=== PATIENT | female | born 1955 | race Caucasian/White ===

== ENCOUNTER 2017-11-18 11:17 | Emergency (ER) | payer OTHER ==
[~2017-11-18] VITALS: Ht 165.1 cm; Wt 143.8 kg
[2017-11-18] MEDS ORDERED: ZYRTEC10 MG PO (12:17)
[2017-11-18] MEDS ORDERED: TESSALON PERLE100 M1 PO (12:17)
[2017-11-18] MEDS ORDERED: FLONASE ALLERG9.9 ML NAS (12:17)
== END 2017-11-18 12:17 | disposition home or self-care (01) ==
LOC: ED 11:17
DX: B34.9 Viral infection, unspecified (principal); E11.9 Type 2 diabetes mellitus without complications

== ENCOUNTER 2020-03-07 18:12 | Inpatient (IN) | payer MEDICARE, OTHER ==
[~2020-03-07] VITALS: Ht 165.1 cm; Wt 134.0 kg
[~2020-03-07 18:12] MED LIST: FLONASE ALLERG9.9 ML NAS; TESSALON PERLE100 M1 PO; ZYRTEC10 MG PO
[2020-03-07 18:15] VITALS: BP 112/71
[2020-03-07 18:58] LABS: ACT PARTIAL THROMBO TIME 25.1 SECONDS (20.0-32.1)
[2020-03-07 19:00] LABS: ALBUMIN 2.9 gm/dl (3.1-4.5); ALKALINE PHOSPHATASE 86 U/L (45-117); BUN 34 mg/dl (7-24); CHLORIDE 111 mmol/L (98-107); CREATININE 2.07 mg/dL (0.55-1.02); LIPASE 294 U/L (73-393); POTASSIUM 5.4 mmol/L (3.5-5.1); SGOT/AST 27 IU/L (3-35); SGPT/ALT 33 U/L (12-78); SODIUM 137 mmol/L (136-145); TOTAL PROTEIN 7.7 gm/dL (6.4-8.2)
[2020-03-07 19:04] LABS: TROPONIN I < 0.015 ng/ml (<0.045)
[2020-03-07 19:20] LABS: BASO % 0.2 % (0.0-1.0); EOS % 0.2 % (1.0-4.0); LYMPH % 16.4 % (27.0-41.0); MEAN CORPUSCULAR HGB 28.8 pg (27.0-31.0); MEAN PLATELET VOLUME 10.4 fl (9.6-12.3); MONO # 0.4 10*3/uL (0.1-1.0); MONO % 3.5 % (3.0-9.0); NEUT # 9.8 10*3/uL (2.3-7.9); NEUT % 79.1 % (47.0-73.0); PLATELET COUNT AUTOMATED 285 10*3/uL (130-400); RED BLOOD COUNT 4.41 10*6/uL (4.10-5.10); RED CELL DISTRI WIDTH 14.1 % (0-14.5); WHITE BLOOD COUNT 12.4 10*3/uL (4.8-10.8)
[2020-03-07 19:53] VITALS: BP 112/67
[2020-03-07 21:44] VITALS: BP 129/54
[2020-03-07 23:00] VITALS: BP 134/68
[2020-03-07 23:28] LABS: ARTERIAL BLOOD GAS PH 7.288 (7.35-7.45)
[2020-03-07 23:40] VITALS: BP 113/64
[2020-03-08] VITALS (7 sets, daily range): BP systolic 110–136; BP diastolic 42–64
[2020-03-08] MEDS ORDERED: ZENPEP DR 40,01 EAC1 PO (01:58)
[2020-03-08] MEDS ORDERED: PROAIR HFA8.5 GM INH (02:00)
[2020-03-08] MEDS ORDERED: PROMETH-CODEIN 65 ML PO (02:00)
[2020-03-08] MEDS ORDERED: ACARBOSE50 MG PO (02:02)
[2020-03-08] MEDS ORDERED: NORVASC5 MG PO (02:02)
[2020-03-08] MEDS ORDERED: LOSARTAN POTAS100 M1 PO (02:03)
[2020-03-08] MEDS ORDERED: SIMVASTATIN10 MG PO (02:03)
[2020-03-08] MEDS ORDERED: PAROXETINE HCL10 MG PO (02:04)
[2020-03-08] MEDS ORDERED: PROTONIX20 MG PO (02:04)
[2020-03-08] MEDS ORDERED: ASPIRIN ADULT L81 M1 PO (02:05)
[2020-03-08] MEDS ORDERED: LEVOTHYROXINE100 MC1 PO (02:06)
[2020-03-08] MEDS ORDERED: DULCOLAX5 M1 PO (02:06)
[2020-03-08] MEDS ORDERED: GLIMEPIRIDE4 M1 PO (02:07)
[2020-03-08] MEDS ORDERED: METOPROLOL SUCC50 M1 PO (02:07)
[2020-03-08] MEDS ORDERED: NEXIUM20 M1 PO (02:08)
[2020-03-08] MEDS ORDERED: MIRALAX119 GM PO (02:09)
[2020-03-08] MEDS ORDERED: CALCIUM500 M1 PO (02:10)
[2020-03-08] MEDS ORDERED: MULTIVITAMINS1 EAC5 PO (02:10)
[2020-03-08] MEDS ORDERED: VITAMIN D310 MC3 PO (02:11)
[2020-03-08] MEDS ORDERED: LEVEMIR FL100 UNIT/1 SQ (02:14)
[2020-03-08] MEDS ORDERED: HUMALOG100 UNIT/1 SQ ×2 (02:16→02:17)
[2020-03-08 04:18] LABS: ALBUMIN 2.8 gm/dl (3.1-4.5); CREATININE 2.54 mg/dL (0.55-1.02); TOTAL PROTEIN 7.4 gm/dL (6.4-8.2)
[2020-03-08 04:31] LABS: POTASSIUM 6.4 mmol/L (3.5-5.1)
[2020-03-08 05:55] LABS: HEMATOCRIT 37.4 % (37.0-47.0); MEAN CELL VOLUME 94.2 fl (81.0-99.0); MEAN CORPUSCULAR HGB 28.7 pg (27.0-31.0); MEAN CORPUSCULAR HGB CONC 30.5 g/dl (33.0-37.0); MEAN PLATELET VOLUME 11.1 fl (9.6-12.3); PLATELET COUNT AUTOMATED 218 10*3/uL (130-400); RED BLOOD COUNT 3.97 10*6/uL (4.10-5.10); RED CELL DISTRI WIDTH 13.9 % (0-14.5); WHITE BLOOD COUNT 20.4 10*3/uL (4.8-10.8)
[2020-03-08 06:52] LABS: CREATININE 2.55 mg/dL (0.55-1.02)
[2020-03-08 06:59] LABS: POTASSIUM 6.5 mmol/L (3.5-5.1)
[2020-03-08 07:16] LABS: PLATELET SUFFICIENCY NORMAL (NORMAL); TOTAL CELLS COUNTED 100 #CELLS; TOXIC GRANULATION SLIGHT
[2020-03-08] MEDS ORDERED: TRAZODONE50 MG PO (07:21)
[2020-03-08 08:40] LABS: CREATININE 2.26 mg/dL (0.55-1.02)
[2020-03-08 08:42] LABS: INTERNATIONAL NORM RATIO 1.1 (2.0-3.5)
[2020-03-08 08:45] LABS: POTASSIUM 6.3 mmol/L (3.5-5.1)
[2020-03-08 17:07] LABS: CREATININE 2.27 mg/dL (0.55-1.02); POTASSIUM 5.9 mmol/L (3.5-5.1)
[2020-03-09 05:51] LABS: ALBUMIN 2.8 gm/dl (3.1-4.5); TOTAL PROTEIN 6.8 gm/dL (6.4-8.2)
[2020-03-09 05:52] LABS: POTASSIUM 4.9 mmol/L (3.5-5.1)
[2020-03-09 06:09] LABS: BASO % 0.4 % (0.0-1.0); EOS % 0.3 % (1.0-4.0); HEMATOCRIT 31.7 % (37.0-47.0); LYMPH # 2.1 10*3/uL (1.3-4.4); LYMPH % 20.6 % (27.0-41.0); MEAN CELL VOLUME 95.8 fl (81.0-99.0); MEAN CORPUSCULAR HGB CONC 30.3 g/dl (33.0-37.0); MEAN PLATELET VOLUME 11.1 fl (9.6-12.3); MONO # 0.5 10*3/uL (0.1-1.0); NEUT # 7.5 10*3/uL (2.3-7.9); PLATELET COUNT AUTOMATED 191 10*3/uL (130-400); RED BLOOD COUNT 3.31 10*6/uL (4.10-5.10); RED CELL DISTRI WIDTH 14.2 % (0-14.5); WHITE BLOOD COUNT 10.3 10*3/uL (4.8-10.8)
[2020-03-09 08:00] VITALS: BP 128/50
[2020-03-09 10:25] LABS: ACT PARTIAL THROMBO TIME 67.8 SECONDS (20.0-32.1)
[2020-03-09 12:00] VITALS: BP 116/41
[2020-03-09 16:00] VITALS: BP 103/40
[2020-03-09 20:00] VITALS: BP 114/43; BP 130/90
[2020-03-10] VITALS: BP 133/55
[2020-03-10 04:00] VITALS: BP 127/50
[2020-03-10 06:16] LABS: BASO % 0.7 % (0.0-1.0); EOS # 0.2 10*3/uL (0.0-0.4); EOS % 3.6 % (1.0-4.0); HEMATOCRIT 33.3 % (37.0-47.0); LYMPH # 1.9 10*3/uL (1.3-4.4); MEAN CELL VOLUME 94.9 fl (81.0-99.0); MEAN CORPUSCULAR HGB 29.1 pg (27.0-31.0); MEAN CORPUSCULAR HGB CONC 30.6 g/dl (33.0-37.0); MEAN PLATELET VOLUME 11.2 fl (9.6-12.3); MONO # 0.4 10*3/uL (0.1-1.0); NEUT # 3.2 10*3/uL (2.3-7.9); NEUT % 54.8 % (47.0-73.0); PLATELET COUNT AUTOMATED 178 10*3/uL (130-400); RED BLOOD COUNT 3.51 10*6/uL (4.10-5.10); RED CELL DISTRI WIDTH 14.2 % (0-14.5); WHITE BLOOD COUNT 5.9 10*3/uL (4.8-10.8)
[2020-03-10 06:49] LABS: CREATININE 1.77 mg/dL (0.55-1.02); POTASSIUM 4.9 mmol/L (3.5-5.1)
[2020-03-10 06:50] LABS: TOTAL PROTEIN 7.3 gm/dL (6.4-8.2)
[2020-03-10 08:00] VITALS: BP 128/63
[2020-03-10 12:00] VITALS: BP 134/46
[2020-03-10] MEDS ORDERED: ZITHROMAX250 MG PO (13:13)
[2020-03-10] MEDS ORDERED: OMNICEF300 MG PO (13:13)
[2020-03-15 21:06] LABS: ADENOVIRUS Negative (Negative); INFLUENZA A Negative (Negative); INFLUENZA B Negative (Negative); METAPNEUMOVIRUS Negative (Negative); PARAINFLUENZA 1 Negative (Negative); PARAINFLUENZA 2 Negative (Negative); PARAINFLUENZA 3 Negative (Negative); RHINOVIRUS Negative (Negative); RSV A Negative (Negative); RSV B Negative (Negative)
== END 2020-03-10 14:29 | disposition home or self-care (01) | DRG 871 ==
LOC: ED 18:12 → EDHOLD 21:45 → 4E 21:45
PROVIDERS: Emergency Medicine; Hospitalist; Internal Medicine; Internal Medicine Critical Care Medicine; Internal Medicine Nephrology; Student in an Organized Health Care Education/Training Program; ADMIT Internal Medicine
DX: A41.9 Sepsis, unspecified organism (principal); J18.1 Lobar pneumonia, unspecified organism; T88.6XXA Anaphylactic reaction due to adverse effect of correct drug or medicament properly administered, initial encounter; Z68.43 Body mass index [BMI] 50.0-59.9, adult; E87.4 Mixed disorder of acid-base balance; E44.0 Moderate protein-calorie malnutrition; N17.9 Acute kidney failure, unspecified; Z20.828 Contact with and (suspected) exposure to other viral communicable diseases; E87.5 Hyperkalemia; E11.22 Type 2 diabetes mellitus with diabetic chronic kidney disease; N18.3 Chronic kidney disease, stage 3 (moderate); I12.9 Hypertensive chronic kidney disease with stage 1 through stage 4 chronic kidney disease, or unspecified chronic kidney disease; E03.9 Hypothyroidism, unspecified; T36.8X5A Adverse effect of other systemic antibiotics, initial encounter; E66.01 Morbid (severe) obesity due to excess calories; E87.8 Other disorders of electrolyte and fluid balance, not elsewhere classified; E11.65 Type 2 diabetes mellitus with hyperglycemia; R79.89 Other specified abnormal findings of blood chemistry; R65.20 Severe sepsis without septic shock; E07.89 Other specified disorders of thyroid; R06.89 Other abnormalities of breathing; Z79.4 Long term (current) use of insulin; Y92.89 Other specified places as the place of occurrence of the external cause; Z90.49 Acquired absence of other specified parts of digestive tract; Z90.710 Acquired absence of both cervix and uterus; Z82.3 Family history of stroke; Z80.42 Family history of malignant neoplasm of prostate; Z88.1 Allergy status to other antibiotic agents; Z88.5 Allergy status to narcotic agent; Z79.899 Other long term (current) drug therapy; R09.1 Pleurisy; M94.0 Chondrocostal junction syndrome [Tietze]; R07.89 Other chest pain

== ENCOUNTER → 2021-12-19 | Outpatient (CLI) | payer MEDICARE, OTHER ==
[~2021-12-19] MED LIST changes: +ACARBOSE50 MG PO; +ASPIRIN ADULT L81 M1 PO; +CALCIUM500 M1 PO; +DULCOLAX5 M1 PO; +GLIMEPIRIDE4 M1 PO; +HUMALOG100 UNIT/1 SQ; +LEVEMIR FL100 UNIT/1 SQ; +LEVOTHYROXINE100 MC1 PO; +LOSARTAN POTAS100 M1 PO; +METOPROLOL SUCC50 M1 PO; +MIRALAX119 GM PO; +MULTIVITAMINS1 EAC5 PO; +NEXIUM20 M1 PO; +NORVASC5 MG PO; +OMNICEF300 MG PO; +PAROXETINE HCL10 MG PO; +PROAIR HFA8.5 GM INH; +PROMETH-CODEIN 65 ML PO; +PROTONIX20 MG PO; +SIMVASTATIN10 MG PO; +TRAZODONE50 MG PO; +VITAMIN D310 MC3 PO; +ZENPEP DR 40,01 EAC1 PO; +ZITHROMAX250 MG PO
== END | disposition home or self-care (01) ==
LOC: CARD 14:51
PROVIDERS: ATTEND Internal Medicine Cardiovascular Disease
DX: I08.8 Other rheumatic multiple valve diseases (principal); R06.00 Dyspnea, unspecified

== ENCOUNTER → 2022-08-25 | Outpatient (CLI) | payer MEDICARE, OTHER | LOC: US 15:00 | PROVIDERS: ATTEND Nurse Practitioner Family | DX: R22.42 Localized swelling, mass and lump, left lower limb (principal) ==

== ENCOUNTER → 2023-10-13 | Outpatient (CLI) | payer MEDICARE, OTHER ==
[~2023-10-13] MED LIST changes: +ALIGN4 M1 PO; +ALLOPURINOL100 MG PO; +OXYBUTYNIN10 MG PO
== END | disposition home or self-care (01) ==
LOC: CARD 03:54
PROVIDERS: ATTEND Internal Medicine Cardiovascular Disease
DX: I99.8 Other disorder of circulatory system (principal); R94.31 Abnormal electrocardiogram [ECG] [EKG]; E11.65 Type 2 diabetes mellitus with hyperglycemia; R53.81 Other malaise; R06.02 Shortness of breath

== ENCOUNTER 2025-08-03 19:56 | Inpatient (IN) | payer MEDICARE, OTHER ==
[~2025-08-03] VITALS: Ht 165.1 cm; Wt 131.8 kg
[2025-08-03] MEDS ORDERED: CREON DR 36,001 EAC1 PO (20:29)
[2025-08-03] MEDS ORDERED: Rocaltrol0.25 MCG PO (20:29)
[2025-08-03] MEDS ORDERED: LORADAMED10 MG PO (20:30)
[2025-08-03] MEDS ORDERED: LEVOTHYROXINE100 MC2 PO (20:30)
[2025-08-03] MEDS ORDERED: COZAAR50 M1 PO (20:31)
[2025-08-03] MEDS ORDERED: LUBIPROSTONE8 MCG PO (20:31)
[2025-08-03] MEDS ORDERED: OMEPRAZOLE40 MG PO (20:33)
[2025-08-03] MEDS ORDERED: NOVOLOG MI100 UNIT/1 SQ (20:33)
[2025-08-03] MEDS ORDERED: PAROXETINE HCL30 MG PO (20:34)
[2025-08-03] MEDS ORDERED: ONDANSETRON HYDR4 MG PO (20:34)
[2025-08-03] MEDS ORDERED: SIMVASTATIN10 MG PO (20:35)
[2025-08-03] MEDS ORDERED: TRESIBA FL100 UNIT/1 SQ (20:36)
[2025-08-03] MEDS ORDERED: ASPIRIN CHEWABL81 MG PO (20:36)
[2025-08-03] MEDS ORDERED: MIRALAX17 GM PO (20:37)
[2025-08-03 20:49] VITALS: BP 143/47
[2025-08-03 21:14] LABS: BASO # 0.0 10*3/uL (0.0-0.1); BASO % 0.5 % (0.0-1.0); EOS # 0.2 10*3/uL (0.0-0.4); EOS % 3.6 % (1.0-4.0); MEAN CELL VOLUME 96.6 fl (81.0-99.0); MEAN CORPUSCULAR HGB 29.7 pg (27.0-31.0); MEAN PLATELET VOLUME 11.4 fl (9.6-12.3); MONO # 0.5 10*3/uL (0.1-1.0); MONO % 8.6 % (3.0-9.0); NEUT # 3.4 10*3/uL (2.3-7.9); NEUT % 54.7 % (47.0-73.0); NUCLEATED RED BLOOD CELL 0.0 % (0.0-0.0); NUCLEATED RED BLOOD CELL 0.0 10*3/uL (0.0-0.0); PLATELET COUNT AUTOMATED 165 10*3/uL (130-400); RED CELL DISTRI WIDTH 13.8 % (0-14.5)
[2025-08-03 21:38] LABS: ACT PARTIAL THROMBO TIME 28.6 SECONDS (20.0-32.1)
[2025-08-03 21:39] LABS: BUN 35.0 mg/dl (9-23); SGPT/ALT 24.0 U/L (5-49)
[2025-08-04 00:25] VITALS: BP 141/84
[2025-08-04] MEDS ORDERED: BISACODYL 5 MG TAB PO PRN (00:45)
[2025-08-04] MEDS ORDERED: Ondansetron Hydrochloride 4 MG/2 ML VIAL IV PRN (00:45)
[2025-08-04] MEDS ORDERED: BISACODYL 10 MG SUPP R PRN (00:45)
[2025-08-04] MEDS ORDERED: ACETAMINOPHEN 650 MG SUPP R PRN (00:45)
[2025-08-04] MEDS ORDERED: ACETAMINOPHEN 325 MG TAB PO PRN (00:45)
[2025-08-04 01:15] VITALS: BP 190/48
[2025-08-04] MEDS ORDERED: INSULIN REGULAR, HUMAN 1 UNIT/0.01 ML IV ONE (03:25)
[2025-08-04] MEDS ORDERED: DEXTROSE 50% 25 GM/50 ML VIAL IV ONE (03:25)
[2025-08-04] MEDS ORDERED: SODIUM CHLORIDE 0.9% 1,000 ML IV ONE (03:40)
[2025-08-04] MEDS ORDERED: DEXTROSE 50% 25 GM/50 ML VIAL IV PRN (05:10)
[2025-08-04] MEDS ORDERED: ASPIRIN 325 MG ENTERIC COATED PO ONE (05:30)
[2025-08-04 06:30] LABS: ACT PARTIAL THROMBO TIME 28.3 SECONDS (20.0-32.1)
[2025-08-04 06:42] LABS: BASO # 0.0 10*3/uL (0.0-0.1); BASO % 0.8 % (0.0-1.0); EOS # 0.2 10*3/uL (0.0-0.4); EOS % 4.5 % (1.0-4.0); MEAN CELL VOLUME 94.7 fl (81.0-99.0); MEAN CORPUSCULAR HGB 29.1 pg (27.0-31.0); MEAN PLATELET VOLUME 11.1 fl (9.6-12.3); MONO # 0.5 10*3/uL (0.1-1.0); MONO % 9.3 % (3.0-9.0); NEUT # 2.7 10*3/uL (2.3-7.9); NEUT % 52.4 % (47.0-73.0); NUCLEATED RED BLOOD CELL 0.0 % (0.0-0.0); NUCLEATED RED BLOOD CELL 0.0 10*3/uL (0.0-0.0); PLATELET COUNT AUTOMATED 171 10*3/uL (130-400); RED CELL DISTRI WIDTH 14.0 % (0-14.5)
[2025-08-04 06:49] LABS: BUN 29.0 mg/dl (9-23); FREE T4 0.91 ng/dl (0.89-1.76); LDL CHOLESTEROL 47.0 mg/dL (9-159); SGPT/ALT 26.0 U/L (5-49)
[2025-08-04] MEDS ORDERED: Technetium Tc 99M Tetrofosmi 0.23 MG KIT IJ SCH (07:10)
[2025-08-04] MEDS ORDERED: INSULIN LISPRO 1 UNIT/0.01 ML SQ SCH (07:30)
[2025-08-04 08:00] VITALS: BP 130/101
[2025-08-04 09:06] LABS: VITAMIN D, 25-HYDROXY 31.1 ng/mL (30-100)
[2025-08-04] MEDS ORDERED: ASPIRIN, CHEWABLE 81 MG TAB PO SCH (10:00)
[2025-08-04] MEDS ORDERED: ALLOPURINOL 100 MG TAB PO SCH (10:00)
[2025-08-04] MEDS ORDERED: Insulin Glargine, Recombinan 1 UNIT/0.01 ML SC SCH (10:00)
[2025-08-04] MEDS ORDERED: AMYLASE PO SCH (10:00)
[2025-08-04] MEDS ORDERED: LIPASE PO SCH (10:00)
[2025-08-04] MEDS ORDERED: PROTEASE PO SCH (10:00)
[2025-08-04] MEDS ORDERED: LORATADINE 10 MG TAB PO SCH (10:00)
[2025-08-04 12:00] VITALS: BP 147/55
[2025-08-04] MEDS ORDERED: Menthol/Zinc Oxide 4 GM THIN T PRN (15:00)
[2025-08-04 16:00] VITALS: BP 149/57
[2025-08-04 20:00] VITALS: BP 169/51
[2025-08-04] MEDS ORDERED: ATORVASTATIN CALCIUM 40 MG TABLET PO SCH (22:00)
[2025-08-04] MEDS ORDERED: Menthol/Zinc Oxide 4 GM THIN T SCH (22:00)
[2025-08-05] VITALS: BP 144/49
[2025-08-05 06:28] LABS: BUN 30.0 mg/dl (9-23); SGPT/ALT 22.0 U/L (5-49)
[2025-08-05 08:00] VITALS: BP 141/57
[2025-08-05] MEDS ORDERED: SODIUM POLYSTYRENE SULFONATE 15 GM/60 ML BOT PO ONE (09:20)
[2025-08-05] MEDS ORDERED: Albuterol Sulfate 1.25 MG/3 ML VIAL NEB ONE (10:15)
[2025-08-05 12:00] VITALS: BP 140/71
[2025-08-05] MEDS ORDERED: FUROSEMIDE 40 MG/4 ML VIAL IV ONE (13:30)
[2025-08-05 16:00] VITALS: BP 147/68
[2025-08-05 20:00] VITALS: BP 155/53
[2025-08-05 20:27] LABS: BUN 26.0 mg/dl (9-23)
[2025-08-06] VITALS: BP 124/59
[2025-08-06 05:33] LABS: BUN 29.0 mg/dl (9-23)
[2025-08-06 06:12] LABS: BASO # 0.0 10*3/uL (0.0-0.1); BASO % 0.6 % (0.0-1.0); EOS # 0.2 10*3/uL (0.0-0.4); EOS % 3.6 % (1.0-4.0); MEAN CELL VOLUME 91.7 fl (81.0-99.0); MEAN CORPUSCULAR HGB 28.7 pg (27.0-31.0); MEAN PLATELET VOLUME 11.4 fl (9.6-12.3); MONO # 0.5 10*3/uL (0.1-1.0); MONO % 10.2 % (3.0-9.0); NEUT # 3.0 10*3/uL (2.3-7.9); NEUT % 57.0 % (47.0-73.0); NUCLEATED RED BLOOD CELL 0.0 % (0.0-0.0); NUCLEATED RED BLOOD CELL 0.0 10*3/uL (0.0-0.0); PLATELET COUNT AUTOMATED 148 10*3/uL (130-400); RED CELL DISTRI WIDTH 13.7 % (0-14.5)
[2025-08-06 08:00] VITALS: BP 141/61
[2025-08-06] MEDS ORDERED: Polyethylene Glycol 3350 17 GM PACKET PO SCH (10:00)
[2025-08-06] MEDS ORDERED: Polyethylene Glycol 3350 17 GM PACKET ONE (10:13)
[2025-08-06] MEDS ORDERED: FUROSEMIDE 40 MG/4 ML VIAL IV ONE (11:20)
[2025-08-06] MEDS ORDERED: FUROSEMIDE 20 MG/2 ML VIAL ONE (11:46)
[2025-08-06] MEDS ORDERED: FUROSEMIDE 40 MG/4 ML VIAL ONE (11:52)
[2025-08-06 12:00] VITALS: BP 140/63
[2025-08-06 16:00] VITALS: BP 140/79
[2025-08-06 20:00] VITALS: BP 172/64
[2025-08-07] VITALS: BP 150/76
[2025-08-07] MEDS ORDERED: Regadenoson 0.4 MG/5 ML SYR IV ONE (06:35)
[2025-08-07 06:51] LABS: BUN 34.0 mg/dl (9-23)
[2025-08-07 08:00] VITALS: BP 139/55
[2025-08-07 12:00] VITALS: BP 154/67
[2025-08-07] MEDS ORDERED: BUMETANIDE1 MG PO (13:27)
[2025-08-07] MEDS ORDERED: LOSARTAN POTASS25 M1 PO (13:27)
== END 2025-08-07 14:58 | disposition home or self-care (01) | DRG 603 ==
LOC: ED 19:56 → EDHOLD 23:46 → 5E 23:46
PROVIDERS: Emergency Medicine; Student in an Organized Health Care Education/Training Program; ADMIT Internal Medicine; ATTEND Internal Medicine
PROC: 4A02XM4 Measurement of Cardiac Total Activity, External Approach (ICD-10-PCS; principal; 2025-08-07)
PROC: 3E073KZ Introduction of Other Diagnostic Substance into Coronary Artery, Percutaneous Approach (ICD-10-PCS; 2025-08-07)
DX: L03.114 Cellulitis of left upper limb (principal); N18.4 Chronic kidney disease, stage 4 (severe); N17.9 Acute kidney failure, unspecified; E44.1 Mild protein-calorie malnutrition; Z68.42 Body mass index [BMI] 45.0-49.9, adult; R07.89 Other chest pain; E87.5 Hyperkalemia; I12.9 Hypertensive chronic kidney disease with stage 1 through stage 4 chronic kidney disease, or unspecified chronic kidney disease; E66.01 Morbid (severe) obesity due to excess calories; D64.9 Anemia, unspecified; I16.0 Hypertensive urgency; E03.9 Hypothyroidism, unspecified; E83.42 Hypomagnesemia; E11.22 Type 2 diabetes mellitus with diabetic chronic kidney disease; R74.01 Elevation of levels of liver transaminase levels; R16.0 Hepatomegaly, not elsewhere classified; K76.0 Fatty (change of) liver, not elsewhere classified; E11.65 Type 2 diabetes mellitus with hyperglycemia; Z88.5 Allergy status to narcotic agent; Z88.8 Allergy status to other drugs, medicaments and biological substances; Z83.3 Family history of diabetes mellitus; Z82.49 Family history of ischemic heart disease and other diseases of the circulatory system; Z80.42 Family history of malignant neoplasm of prostate; Z82.3 Family history of stroke; Z85.3 Personal history of malignant neoplasm of breast; Z90.710 Acquired absence of both cervix and uterus; Z90.49 Acquired absence of other specified parts of digestive tract; Z79.4 Long term (current) use of insulin; Z87.19 Personal history of other diseases of the digestive system